=== PATIENT | female | born 1995 | race Caucasian/White ===

== ENCOUNTER 2021-05-07 08:55 | Inpatient (IN) | payer OTHER, SELFPAY ==
[2021-05-07] VITALS (59 sets, daily range): BP systolic 115–160; BP diastolic 56–84; PULSE 80–111; TEMP 27.6–37; O2SAT 97–100; BMI 34.9
[2021-05-07] MEDS: Lactated Ringers 1,000 ML 50 ML IV ×2 (09:45→18:35)
[2021-05-07 10:36] LABS: Absolute Lymphocyte Count 2.62 X10^3/uL (0.83-4.51); Absolute Neutrophil Count 6.2 X10^3/uL (2.0-7.7); Basophil# 0.04 X10^3/uL; Basophil% 0.4 % (0-1); Eosinophil# 0.08 X10^3/uL; Eosinophils% 0.8 % (0-5); Hematocrit 33.8 % (37-47); Hemoglobin 10.7 g/dL (12.0-15.0); Lymphocyte # 2.62 X10^3/ul (0.83-4.51); Lymphocyte % 27.2 % (19-41); Mean Corp Hgb Conc 31.7 g/dL (32-36); Mean Corpuscular Hgb 25.6 pg (27.0-32.0); Mean Corpuscular Volume 80.9 fL (81-99); Mean Platelet Vol. 10.9 fl (6.2-12.0); Monocyte# 0.68 X10^3/uL; Monocyte% 7.1 % (0-10); NRBC Flagged by Analyzer 0 % (0-5); Neutrophil # 6.15 X10^3/uL (2.7-7.7); Neutrophil % 63.9 % (47-70); Platelet Count 294 K/mm3 (150-450); RBC Distribution Width CV 14.6 % (11.6-14.6); RBC Distribution Width SD 42.5 fl (35.1-43.9); Red Blood Count 4.18 M/mm3 (4.2-5.4); White Blood Count 9.6 K/mm3 (4.4-11.0)
[2021-05-07] MEDS: CLARIFY ORDER NOTE (10:46)
[2021-05-07] MEDS: Oxytocin 30 units/NS 500 ml 30 UNITS/500 ML IV.SOLN IV (13:37)
[2021-05-07] MEDS: Mag Hydrox/Al Hydrox/Simeth 30 ML UDC PO ×2 (13:49→19:12)
[2021-05-07] MEDS: Lactated Ringers 500 ML 999 ML IV ×3 (14:16→22:42)
[2021-05-07] MEDS: fentaNYL-bupivacaine (epidural) 100 ML BAG EPIDURAL ×3 (15:53→23:37)
[2021-05-07] MEDS: Ondansetron 4 MG/2 ML Vial IV ×2 (16:28→20:42)
[2021-05-07] MEDS: Amnioinfusion- 0.9% NS 1,000 ML IV.SOLN. 1000 ML INTRA-UTER (19:29)
[2021-05-07] MEDS: 0.9% Saline Lock 10 ML Syringe IV (20:42)
[2021-05-08] VITALS (20 sets, daily range): BP systolic 110–133; BP diastolic 44–85; PULSE 85–116; RESP 11–20; TEMP 36.1–37.2; O2SAT 94–100
[2021-05-08] MEDS: Mag Hydrox/Al Hydrox/Simeth 30 ML UDC PO (00:19)
--- NOTE | 2021-05-08 01:57 | PN.OBGYN_ITS ---
Subjective Subjective Called to labor and delivery with FHT down to the 80's without recovery for 4 minutes. Taken to OR and notified of heart rate status and to come to labor and delivery. All call notified. Upon arrival, patient in OR in hands and knees position and FHR recovered to 160s with minimal variability. Pitocin off. Objective Data Objective Data Vital Signs: Vital Signs Temp Pulse BP Pulse Ox 98.8 F 98 120/85 H 99 05/08/21 00:04 05/08/21 00:19 05/08/21 00:04 05/08/21 00:19 Weight: 210 lb 1.608 oz Body Mass Index (BMI) 34.9 Intake & Output: Intake and Output for Last 24 Hours 05/06/21 05/07/21 05/08/21 23:59 23:59 23:59 Intake Total 2836.93 / 2836.93 Output Total 800 / 800 Balance 2036.93 / 2036.93 Lab / Micro Data Result Diagrams: 05/07/21 09:45 Labs: Laboratory Results - last 24 hr 05/07/21 09:45: WBC 9.6, RBC 4.18 L, Hgb 10.7 L, Hct 33.8 L, MCV 80.9 L, MCH 25.6 L, MCHC 31.7 L, RDW Std Deviation 42.5, RDW Coeff of Olga 14.6, Plt Count 294, MPV 10.9, Immature Gran % (Auto) 0.600, Neut % (Auto) 63.9, Lymph % (Auto) 27.2, Liberty % (Auto) 7.1, Eos % (Auto) 0.8, Baso % (Auto) 0.4, Absolute Neuts (auto) 6.2, Absolute Lymphs (auto) 2.62, Nucleated RBC % 0 05/07/21 09:45: Blood Type A POSITIVE, Antibody Screen NEGATIVE Micro: Microbiology 05/07/21 09:35 Mucosa - Nose SARS-CoV-2 Antigen (Rapid) - Final Physical Exam Narrative complete dilation, +1 station NST FHR Rate Baby A Baseline: 160 Variability:: Minimal Accelerations:: None Decelerations:: Variable FHR Category:: Category II Uterine Activity:: Every 4-6 minutes, strong Assessment & Plan (1) Term : (2) PROM (premature rupture of membranes): (3) Obesity affecting : PLAN: 1)Pushed with patient in OR for almost an hour, FHR variable with return to baseline and tolerating pushing efforts. at bedside. Ok to continue with labor at this time and pushing efforts second stage. 2) Resume pitocin due to contractions spacing 3) Restart epidural for pain management
--- NOTE | 2021-05-08 01:57 | PCM.HP.OB ---
HPI - General General Date of Admission: 05/07/21 HPI Narrative KATHE ENRIQUEZ, is a 26 F who presents at 39w3d with PROM at 0715, irregular contractions and cervix half a centimeter and no active labor. OB history positive for obesity. Maternal Data Information DAISY Calculator Estimated Delivery Date Method Current WG Current Estimate 05/11/21 Manual 39w 4d 39w3d upon admission PFSH PFSH Home Medications famotidine 40 mg PO QHS 05/07/21 [History Last Taken 05/02/21 22:00 1 tab] prenat.vits,gucci,see-[id number] [ Vitamin] 1 tab PO DAILY 05/07/21 [History Last Taken 05/06/21 08:00 1 tab] Allergy/AdvReac Type Severity Reaction Status Date / Time No Known Allergies Allergy Verified 05/07/21 10:38 Family History (Updated 05/07/21 @ 11:32 by January Harris) Grandfather Heart disease Mother Hypertension Grandmother Hypertension Grandmother Breast cancer Social History Smoking Status: Never smoker History Elective abortions Hx Para 0 Spontaneous abortions Hx # Term Pregnancies Ectopic pregnancies Hx # Pregnancies Multiple births # of living children NST FHR Rate Baby A Baseline: 130 Variability:: Moderate Accelerations:: 15 x 15 Decelerations:: None FHR Category:: Category I and Category II Uterine Activity:: Irregular ROS Constitutional Constitutional: Reports systems reviewed and no addt'l complaints, except as documented; Denies headache(s) Eyes Eyes: Denies acute decrease in peripheral vision, blurry vision or change in vision ENT HEENT: Reports systems reviewed and no addt'l complaints, except as documented Cardiovascular Cardiovascular: Denies chest pain or dizziness Respiratory/Chest Respiratory/Chest: Denies cough, dyspnea, dyspnea on exertion, shortness of breath at rest or shortness of breath with exertion Gastrointestinal Gastrointestinal: Denies abdominal pain, diarrhea, nausea or vomiting Genitourinary Genitourinary: Denies abdominal discomfort or movement Musculoskeletal Musculoskeletal: Denies limited range of motion Integumentary Integumentary: Reports systems reviewed and no addt'l complaints, except as documented Neurologic Neurologic: Reports systems reviewed and no addt'l complaints, except as documented Psychiatric Psychiatric: Reports systems reviewed and no addt'l complaints, except as documented Endocrine Endocrinology: Reports systems reviewed and no addt'l complaints, except as documented Hematologic/Lymphatic Hematologic/Lymphatic: Reports systems reviewed and no addt'l complaints, except as documented Allergic/Immunologic Allergic/Immunologic: Reports systems reviewed and no addt'l complaints, except as documented Vital Signs Vital Signs Vital Signs: 05/07/21 09:34 05/07/21 10:49 05/07/21 11:09 Temperature 98.1 F Temperature Source Pulse Rate 99 85 Blood Pressure 133/70 H 123/59 H BP Systolic 133 123 BP Diastolic 70 59 Pulse Ox 05/07/21 13:33 05/07/21 13:34 05/07/21 14:29 Temperature 97.8 F Temperature Source Temporal Pulse Rate 100 99 85 Blood Pressure 135/66 H 126/84 H BP Systolic 135 126 BP Diastolic 66 84 Pulse Ox 97 05/07/21 15:02 05/07/21 15:07 05/07/21 15:12 Temperature Temperature Source Pulse Rate 88 94 93 Blood Pressure BP Systolic BP Diastolic Pulse Ox 97 98 99 05/07/21 15:17 05/07/21 15:19 05/07/21 15:22 Temperature Temperature Source Pulse Rate 108 H 106 H 106 H Blood Pressure 115/61 BP Systolic 115 BP Diastolic 61 Pulse Ox 99 98 05/07/21 15:25 05/07/21 15:27 05/07/21 15:30 Temperature Temperature Source Pulse Rate 93 98 86 Blood Pressure 122/67 H 128/59 H BP Systolic 122 128 BP Diastolic 67 59 Pulse Ox 99 05/07/21 15:32 05/07/21 15:36 05/07/21 15:37 Temperature Temperature Source Pulse Rate 80 102 H 95 Blood Pressure 134/66 H BP Systolic 134 BP Diastolic 66 Pulse Ox 100 99 05/07/21 15:41 05/07/21 15:42 05/07/21 15:46 Temperature Temperature Source Pulse Rate 107 H 107 H 93 Blood Pressure 140/84 H 118/60 BP Systolic 140 118 BP Diastolic 84 60 Pulse Ox 98 05/07/21 15:47 05/07/21 15:51 05/07/21 15:52 Temperature Temperature Source Pulse Rate 82 82 89 Blood Pressure 122/56 H BP Systolic 122 BP Diastolic 56 Pulse Ox 99 99 05/07/21 15:57 05/07/21 16:01 05/07/21 16:02 Temperature Temperature Source Pulse Rate 91 88 89 Blood Pressure 131/58 H 120/68 BP Systolic 131 120 BP Diastolic 58 68 Pulse Ox 99 99 05/07/21 16:07 05/07/21 16:12 05/07/21 16:16 Temperature Temperature Source Pulse Rate 109 H 93 96 Blood Pressure 160/70 H 124/58 H BP Systolic 160 124 BP Diastolic 70 58 Pulse Ox 100 99 05/07/21 16:17 05/07/21 16:20 05/07/21 17:00 Temperature 81.7 F L Temperature Source Pulse Rate 102 H 88 Blood Pressure 118/59 L BP Systolic 118 BP Diastolic 59 Pulse Ox 99 05/07/21 17:35 05/07/21 17:36 05/07/21 17:37 Temperature 97.9 F Temperature Source Pulse Rate 110 H Blood Pressure 119/58 L BP Systolic 119 BP Diastolic 58 Pulse Ox 100 05/07/21 18:29 05/07/21 18:30 05/07/21 18:52 Temperature 97.9 F 98.4 F Temperature Source Pulse Rate 111 H Blood Pressure 134/80 H BP Systolic 134 BP Diastolic 80 Pulse Ox 99 05/07/21 19:20 05/07/21 19:22 05/07/21 19:34 Temperature 98.6 F Temperature Source Pulse Rate 95 96 Blood Pressure 143/72 H BP Systolic 143 BP Diastolic 72 Pulse Ox 99 05/07/21 20:06 05/07/21 20:11 05/07/21 20:26 Temperature Temperature Source Temporal Pulse Rate 101 H 109 H Blood Pressure BP Systolic BP Diastolic Pulse Ox 99 100 05/07/21 20:27 05/07/21 20:28 05/07/21 21:09 Temperature 97.7 F L Temperature Source Pulse Rate 101 H 94 Blood Pressure 129/63 H BP Systolic 129 BP Diastolic 63 Pulse Ox 99 05/07/21 21:12 05/07/21 21:13 05/07/21 21:53 Temperature 98.2 F Temperature Source Pulse Rate 108 H 102 H Blood Pressure 125/78 H BP Systolic 125 BP Diastolic 78 Pulse Ox 99 05/07/21 21:58 05/07/21 22:01 05/07/21 22:02 Temperature 98.1 F Temperature Source Pulse Rate 101 H 90 Blood Pressure 119/70 BP Systolic 119 BP Diastolic 70 Pulse Ox 98 05/07/21 22:50 05/07/21 22:53 05/07/21 22:55 Temperature Temperature Source Pulse Rate 104 H 104 H 90 Blood Pressure 118/76 BP Systolic 118 BP Diastolic 76 Pulse Ox 100 100 05/07/21 23:00 05/07/21 23:05 05/07/21 23:10 Temperature Temperature Source Pulse Rate 91 84 97 Blood Pressure BP Systolic BP Diastolic Pulse Ox 99 99 100 05/08/21 00:04 05/08/21 00:19 Temperature 98.8 F Temperature Source Temporal Pulse Rate 95 98 Blood Pressure 120/85 H BP Systolic 120 BP Diastolic 85 Pulse Ox 100 99 Weight Weight: 210 lb 1.608 oz Body Mass Index (BMI) 34.9 Physical Exam Const alert and oriented x3 General Appearance: cooperative Orientation / Consciousness: awake, oriented to person, oriented to place and oriented to time Exam Limitations: no limitations HEENT normocephalic Head and Scalp: normal to inspection, normocephalic and atraumatic Face and Sinus: normal facial exam Eyes General Eye: normal appearance of both eyes Neck full ROM Chest Chest: symmetrical chest wall rise Resp normal respiratory effort and normal air movement Auscultation: clear to auscultation bilaterally Cardio regular rate, regular rhythm, S1 normal heart sound, S2 normal heart sound, no murmurs, no rub, no gallops and no clicks GI normal to inspection, nondistended, normoactive bowel sounds and non-tender appearance of the vagina normal Bladder / Kidney Exam: no CVA tenderness Back/Spine normal ROM Extremity normal to inspection and full ROM Skin no rashes or lesions noted Neuro oriented x3, CN's II-XII intact bilaterally and moves all extremities Sensorium / Orientation: awake, alert and oriented to person Motor Exam: clonus absent Deep Tendon Reflexes: Rt Patellar (L4): 2+ and Lt Patellar (L4): 2+ Labs Labs Labs: Blood Type A POSITIVE Antibody Screen NEGATIVE Hct 33.8 % (37-47) L Hgb 10.7 g/dL (12.0-15.0) L GBS negative COVID negative 1 hr GCT normal RPR negative Rubella Immune HBsAG negative HIV negative HepC negative A positive GC/CT negative Assessment & Plan (1) Obesity affecting : (2) PROM (premature rupture of membranes): (3) Term : PLAN: 1) Admit to labor and delivery 2) Routine labs 3) Continuous EFM 4) Reviewed expectant vs. active management with Pitocin risks vs. benefits. Patient would like to start Pitocin. 5) Planning epidural for pain management 6) Declines LARC 7) collaborative physician and notified of patient status Procedure Criteria Type of Procedure Procedure Type: Elective Elective Risks - COVID COVID Risk Discussion: The surgeon/proceduralist and patient have discussed in detail the risk of exposure to and/or potential harm posed by the COVID-19 virus with having a surgery/procedure at this time versus the risk of delaying the surgery/procedure. It is not possible to know either the risk of delaying the surgery or procedure or chance of getting an infection with perfect accuracy, but a joint decision was made between the patient and the surgeon/proceduralist to proceed at this time with the scheduled surgery/procedure as indicated on the consent form.
[2021-05-08] MEDS: Lactated Ringers 1,000 ML 200 ML IV (02:15)
[2021-05-08] MEDS: Sodium Citrate/Citric Acid 30 ML UDC PO (02:36)
--- NOTE | 2021-05-08 02:37 | EX.PCM.OBRPT ---
Maternal Data Information DAISY Calculator Estimated Delivery Date Method Current WG Current Estimate 05/11/21 Manual 39w 4d 39w3d upon admission Details Operative Information Date of Procedure: 05/08/21 Pre-Operative Diagnosis: Inability of fetus to tolerate labor Post-Operative Diagnosis: Same Indications for : Nonreassuring Status Indications Narrative: The patient was taken to the operating room where epidural anesthesia was dosed & found to be adequate. She was prepped and draped in the dorsal supine position with a leftward tilt. A Pfannenstiel skin incision was made approximately 2 cm above the symphysis pubis and carried through to the underlying fascia with the scalpel. The fascia was incised incised in the midline and extended laterally with the Ann scissors. The rectus muscles were in the midline and the peritoneum was entered carefully and bluntly. The peritoneal incision was stretched and the bladder blade was inserted. Vesicouterine peritoneum was tented up, incised & then bladder flap created gently. The uterine incision was made in a low transverse fashion with the scalpel and extended superiorly and inferiorly with blunt dissection. The 's head was brought to the incision in the flexed position (with the help of RN lifting up the head vaginally) and delivered without difficulty. Tight double nuchal cord was clamped & cut. Then the head was gently guided to allow delivery of the anterior and posterior shoulders. The body then delivered with fundal pressure in the standard fashion. The infant was handed off to the waiting chief of pediatric urology. The placenta was delivered with fundal massage and gentle traction in the standard fashion. The uterus was exteriorized and cleared of clots and debris. The uterine incision was closed with #1 Vicryl suture in a running locked fashion. Monocryl suture was used in an imbricating fashion. The incision was examined and was found to be hemostatic. The right fallopian tube was noted to have some serosal bleeding. One figure of 8 stitch (superficial & not in the lumen) with 3-0 vicryl provided excellent hemostasis. The uterus was returned to the abdominal cavity. After irrigating Bartolo was placed over the right fallopian tube & uterine incision as some areas were denuded (but hemostatic). The peritoneum was closed with vicryl suture in running fashion The rectus muscle was examined and any bleeding was Bovie cauterized. The fascia was closed with PDS suture in a running standard fashion. The subcutaneous tissue was examining and any bleeding was Bovie cauterized. The subcutaneous tissue was reapproximated with interrupted sutures. The skin was closed in a subcuticular fashion by the [employer] while I was present in the labor & delivery unit. The remainder of the procedure was performed by me with assistance. All sponge, lap, and needle counts were correct. The patient was taken to her room for recovery in a stable condition. Classification: MARI Procedure Type: low transverse screwhead polisher #1: Philippe Eldridge Type of Anesthesia: Epidural Antibiotic Given: Ancef 2 grams IV x1 and Zithromax 500 mg/5 mL X1 Drain: Cash to straight drain Estimated Blood Loss: 850ml Fluids Replaced: 1500ml Procedure Start Time: 02:59 Procedure Stop Time: 04:02 Findings Description of Procedure: Normal maternal uterus and adnexa (other than small bleeding area on right fallopian tube) Presentation: Positive for Vertex Amniotic Membrane Rupture Type: Artificial Amniotic Fluid Description: Clear Placental Delivery Description: Expressed Placenta Disposition: [facility] Cord Vessel Description: 3 Vessels Cord Entanglement: Around neck x 2, tight Nuchal Cord Compression: With compression Infant A Gender: Male (Zeferino; weight = 3235g) (1 minute): 7 (5 minute): 9 Delayed Cord Clamping: No
[2021-05-08] MEDS: Cefazolin 2 GM in 0.9% Normal Saline 100 ML IV (02:44)
[2021-05-08] MEDS: Oxytocin 30 units/NS 500 ml 30 UNITS/500 ML IV.SOLN 167 UNITS IV (04:15)
[2021-05-08] MEDS: Ketorolac 30 MG/ML Syringe IV ×2 (05:15→11:05)
[2021-05-08] MEDS: 0.9% Saline Lock 10 ML Syringe IV ×3 (05:16→17:11)
[2021-05-08] MEDS: Acetaminophen 500 MG Tablet 1000 MG PO ×4 (05:17→23:51)
[2021-05-08] MEDS: Lactated Ringers 1,000 ML 100 ML IV (07:30)
[2021-05-08] MEDS: Senna/Docusate Sodium 1 Tablet PO (11:06)
[2021-05-08] MEDS: Ibuprofen 600 MG Tablet PO ×2 (18:21→23:51)
[2021-05-09] VITALS: BP 126/75; PULSE 98; RESP 18; TEMP 36.5; O2SAT 97
[2021-05-09] MEDS: Ibuprofen 600 MG Tablet PO ×4 (05:21→23:23)
[2021-05-09] MEDS: Acetaminophen 500 MG Tablet 1000 MG PO ×4 (05:22→23:24)
[2021-05-09 05:24] VITALS: BP 120/67; PULSE 87; RESP 16; TEMP 36.2; O2SAT 96
[2021-05-09 05:39] LABS: Hematocrit 24.6 % (37-47); Hemoglobin 7.8 g/dL (12.0-15.0); Mean Corp Hgb Conc 31.7 g/dL (32-36); Mean Corpuscular Hgb 26.2 pg (27.0-32.0); Mean Corpuscular Volume 82.6 fL (81-99); Mean Platelet Vol. 10.2 fl (6.2-12.0); Platelet Count 190 K/mm3 (150-450); RBC Distribution Width CV 15.1 % (11.6-14.6); Red Blood Count 2.98 M/mm3 (4.2-5.4); White Blood Count 15.3 K/mm3 (4.4-11.0)
--- NOTE | 2021-05-09 06:58 | PCM.PN.OB ---
Subjective Subjective Patient seen at bedside. She is up ambulating in room during visit. Denies any dizziness, CP, or SOB. Voiding without difficulty. Passing flatus. with support. Pain controlled. Objective Data Objective Data Vital Signs: Vital Signs Temp Pulse Resp BP Pulse Ox 97.1 F L 87 16 120/67 96 05/09/21 05:24 05/09/21 05:24 05/09/21 05:24 05/09/21 05:24 05/09/21 05:24 Oxygen Delivery Method Room Air Weight: 210 lb 1.608 oz Body Mass Index (BMI) 34.9 Intake & Output: Intake and Output for Last 24 Hours 05/07/21 05/08/21 05/09/21 23:59 23:59 23:59 Intake Total 2836.93 / 2836.93 2665.83 / 2665.83 Output Total 800 / 1200 3950 / 3950 Balance 2036.93 / 1636.93 -1284.17 / -1284.17 Lab / Micro Data Result Diagrams: 05/09/21 05:32 Labs: Laboratory Results - last 24 hr 05/09/21 05:32: WBC 15.3 H, RBC 2.98 L, Hgb 7.8 L, Hct 24.6 L, MCV 82.6, MCH 26.2 L, MCHC 31.7 L, RDW Std Deviation 45.0 H, RDW Coeff of Olga 15.1 H, Plt Count 190, MPV 10.2 Micro: Microbiology 05/07/21 09:35 Mucosa - Nose SARS-CoV-2 Antigen (Rapid) - Final ROS Eyes Eyes: Denies blurry vision, change in vision or spots in vision ENT HEENT: Denies dizziness or headache(s) Cardiovascular Cardiovascular: Denies abdominal pain, chest pain or dyspnea Respiratory/Chest Respiratory/Chest: Denies cough, dyspnea, shortness of breath at rest or shortness of breath with exertion Gastrointestinal Gastrointestinal: Denies abdominal pain, diarrhea or vomiting Genitourinary Genitourinary: Denies change in urinary stream, difficulty urinating or dysuria Musculoskeletal Musculoskeletal: Reports none Integumentary Integumentary: Denies rash Neurologic Neurologic: Denies dizziness, headache(s), memory loss or weakness Physical Exam Narrative Dressing is dry and intact Const alert and no apparent distress General Appearance: cooperative and comfortable Exam Limitations: no limitations HEENT normocephalic Eyes General Eye: normal appearance of both eyes Neck full ROM General: normal visual inspection Chest Chest: symmetrical chest wall rise Resp normal respiratory effort and normal air movement Effort and Inspection: symmetric chest movement Auscultation: clear to auscultation bilaterally Cardio regular rate and regular rhythm GI normal to inspection, nondistended, normoactive bowel sounds Back/Spine normal ROM Extremity full ROM and no calf tenderness General Extremity: normal exam except as noted Skin no rashes or lesions noted Neuro CN's II-XII intact bilaterally Psych mental status grossly normal Assessment & Plan (1) Status post primary low transverse section: (2) Acute blood loss anemia: PLAN: POD #1 Primary C/S HGB 10.7 and now 7.8- patient is asymptomatic Start oral iron supplementation Repeat CBC tomorrow support Anticipate discharge home tomorrow
[2021-05-09 08:58] VITALS: BP 115/76; PULSE 98; RESP 16; TEMP 36.2; O2SAT 100
[2021-05-09] MEDS: Senna/Docusate Sodium 1 Tablet PO (10:01)
[2021-05-09] MEDS: Ferrous Sulfate 325 MG Tablet PO ×2 (12:57→20:02)
[2021-05-09 14:48] VITALS: BP 111/78; PULSE 92; RESP 16; TEMP 36.4; O2SAT 98
[2021-05-09 21:37] VITALS: BP 121/70; PULSE 84; RESP 16; TEMP 36.4; O2SAT 95
[2021-05-10 02:51] VITALS: BP 132/82; PULSE 80; RESP 18
[2021-05-10] MEDS: Ibuprofen 600 MG Tablet PO (04:50)
[2021-05-10] MEDS: Acetaminophen 500 MG Tablet 1000 MG PO ×2 (04:50→10:52)
[2021-05-10 05:09] LABS: Hematocrit 26.8 % (37-47); Hemoglobin 8.2 g/dL (12.0-15.0); Mean Corp Hgb Conc 30.6 g/dL (32-36); Mean Corpuscular Hgb 25.6 pg (27.0-32.0); Mean Corpuscular Volume 83.8 fL (81-99); Mean Platelet Vol. 9.9 fl (6.2-12.0); Platelet Count 231 K/mm3 (150-450); RBC Distribution Width CV 15.3 % (11.6-14.6); RBC Distribution Width SD 45.6 fl (35.1-43.9); White Blood Count 13.4 K/mm3 (4.4-11.0)
[2021-05-10 09:00] VITALS: BP 131/82; PULSE 88; RESP 16; TEMP 36.6; O2SAT 98
--- NOTE | 2021-05-10 09:18 | PCM.DC ---
Discharge Instructions Follow Up Care Test Results: Test results from this visit will be discussed in further detail at your follow-up appointment, if applicable. Discharge Plan Admission Admit Date/Time: 05/07/21 08:55 Attending Provider: Ronny Valladares Primary Care Provider: Augie Thompson Instructions Patient Instructions: After Delivery Concerns, After a , C Section Dc Discharge Orders/Prescriptions Prescriptions: No Action famotidine 40 mg tablet 40 mg PO QHS RF: 0 Vitamin Tablet 1 tab PO DAILY RF: 0 Referrals / Follow Up: Augie Thompson MD [Primary Care Provider] - Disposition Discharge Orders: Discharge Patient (Routine); Ordered 05/10/21 Ordered By: Dr. Josselyn Perea
--- NOTE | 2021-05-10 09:19 | PCM.PN.OB ---
Subjective Subjective Pt doing well. Ambulating and voiding without difficulty. Tolerating regular diet without nausea vomiting. Lochia normal. Pain controlled. Desires to go home. No CP or SOB. Objective Data Objective Data Vital Signs: Vital Signs Temp Pulse Resp BP Pulse Ox 97.5 F L 80 18 132/82 H 95 05/09/21 21:37 05/10/21 02:51 05/10/21 02:51 05/10/21 02:51 05/09/21 21:37 Oxygen Delivery Method Room Air Weight: 210 lb 1.608 oz Body Mass Index (BMI) 34.9 Intake & Output: Intake and Output for Last 24 Hours 05/08/21 05/09/21 05/10/21 23:59 23:59 23:59 Intake Total 2665.83 / 2665.83 Output Total 3950 / 3950 Balance -1284.17 / -1284.17 Lab / Micro Data Result Diagrams: 05/10/21 04:55 Labs: Laboratory Results - last 24 hr 05/10/21 04:55: WBC 13.4 H, RBC 3.20 L, Hgb 8.2 L, Hct 26.8 L, MCV 83.8, MCH 25.6 L, MCHC 30.6 L, RDW Std Deviation 45.6 H, RDW Coeff of Olga 15.3 H, Plt Count 231, MPV 9.9 Micro: Microbiology 05/07/21 09:35 Mucosa - Nose SARS-CoV-2 Antigen (Rapid) - Final Assessment & Plan (1) Acute blood loss anemia: PLAN: Pt desires discharge home. Doing well. Iron supplement at home. To follow up in 1 week in office. (2) Status post primary low transverse section:
[2021-05-10] MEDS: Senna/Docusate Sodium 1 Tablet PO (10:34)
== END 2021-05-10 10:50 | disposition home or self-care (01) | DRG 788 ==
PROVIDERS: Advanced Practice Midwife; Admitting Provider Obstetrics & Gynecology; PCP Family Medicine; Visit Provider Obstetrics & Gynecology
DX: O42.02 Full-term premature rupture of membranes, onset of labor within 24 hours of rupture (principal); O99.214 Obesity complicating childbirth; E66.9 Obesity, unspecified; O69.1XX0 Labor and delivery complicated by cord around neck, with compression, not applicable or unspecified; O76 Abnormality in fetal heart rate and rhythm complicating labor and delivery; Z3A.39 39 weeks gestation of pregnancy; Z37.0 Single live birth
CPT/HCPCS: 59025; 59050; 85025; 85027; 86850; 86900; 86901; 87426; 99218; J7030; J7120; A4216; G0378; J2405

== ENCOUNTER 2023-01-09 15:25 | Emergency (ER) | payer OTHER, SELFPAY ==
[2023-01-09 15:25] VITALS: BP 120/68; PULSE 76; RESP 16; TEMP 36.6; O2SAT 100; BMI 33.6
--- NOTE | 2023-01-09 15:40 | US_ITS ---
STUDY: FIRST TRIMESTER OBSTETRICAL ULTRASOUND REASON FOR EXAM: Female, 27 years old. threatened misscarriage TECHNIQUE: Transvaginal US was obtained to better visualized the ovaries. TECHNICAL QUALITY: Adequate. PRIOR ULTRASOUND: None. FINDINGS: There is visualization of a single gestational sac in a normal intrauterine position. The mean sac diameter (MSD) measures 36 mm, indicating an estimated gestational age (EGA) of 8 weeks, 6 days. The gestational sac shape is within normal limits. There is a visualized yolk sac. The yolk sac measures 3.4 mm. The placenta is non-visualized. Due to early gestation, the placenta is not seen. There is visualization of a live embryo. The crown-rump length (CRL) measures 31 mm, indicating an estimated gestational age (EGA) of 9 weeks, 5 days. There is demonstrated cardiac activity with a heart rate of 177 bpm. The estimated gestation age (EGA) by LMP is 9 weeks, 6 days. The estimated date of delivery (DAISY) by LMP is 10.28.23. The estimated gestation age (EGA) by US is 9 weeks, 2 days. The estimated date of delivery (DAISY) by US is 11.1.23. The uterus measures 10.6x8 cm. There is no demonstrated uterine fibroid. The cervix is closed.Small subchorionic hemorrhage. The right ovary measures 3.2 cm. There is 20mmright ovarian cyst. There is no visualized right adnexal mass or complex lesion. The left ovary measures 2.9 cm. There is no left ovarian cyst. There is no visualized left adnexal mass or complex lesion. There is minimal fluid in the cul de sac. US/Transvaginal w/Preg US IMPRESSION: There is a single live intrauterine with a heart rate of 177 bpm. There is minimal fluid in the cul de sac. Small subchorionic hemorrhage. Electronically Signed: Lee Greco MD at 17:12 EDT ,
--- NOTE | 2023-01-09 15:41 | EDS_ITS ---
HPI HPI - Female History of Present Illness Chief Complaint: Vag Bld, Preg Informant: patient Bleeding Issue: Positive for Vaginal bleeding Onset: Today Current Severity: Mild Associated Symptoms P: 1 Ab: 1 Narrative Narrative: Patient presents secondary to vaginal bleeding. She is currently 10 weeks with her third . Her first she carried to term and had a . Her second she miscarried at 7 weeks. Her blood type is a positive, verified on our records. She reports blood in the toilet bowl today but not passing any clots or tissue. She did use a panty liner but has had only mild bleeding onto that. No significant abdominal pain. Patient follows with Dr. Meneses in [place] for [facility] [employer] care. PFSH PFSH Medical History no medical history no medical history Home Medications famotidine 40 mg tablet 40 mg PO QHS indigestion 05/07/21 [History Last Taken 05/02/21 22:00 1 tab] prenat.vits,gucci,esp-xpqv-hoyuc 1 tab PO DAILY vitamin 05/07/21 [History Last Taken 05/06/21 08:00 1 tab] Allergy/AdvReac Type Severity Reaction Status Date / Time No Known Allergies Allergy Verified 01/09/23 15:29 Family History Grandfather Heart disease Mother Hypertension Grandmother Hypertension Grandmother Breast cancer Social History Smoking Status: Never smoker ROS ROS ED Constitutional Constitutional ED: Denies chills or fever(s) Eyes Eyes: Denies change in vision or discharge from eye(s) ENT ENT ED: Denies discharge from eye(s), rhinorrhea or sore throat Cardiovascular Cardiovascular: Denies chest pain or palpitations Respiratory/Chest Respiratory/Chest: Denies cough or dyspnea Gastrointestinal Gastrointestinal: Denies abdominal pain, nausea or vomiting Genitourinary Genitourinary ED: Denies dysuria Musculoskeletal Musculoskeletal: Denies back pain or extremity pain Integumentary Denies Abrasions or rash Neurologic Neurologic: Denies headache(s) or weakness Psychiatric Psychiatric: Denies anxiety or depression Allergic/Immunologic Allergic/Immunologic ED: Denies lip swelling or urticaria EXAM Physical Exam Const Vital Signs: 01/09/23 15:25 Temperature 97.8 F Temperature Source Temporal Pulse Rate 76 Respiratory Rate 16 Blood Pressure 120/68 Blood Pressure Mean 85 Pulse Ox 100 Oxygen Delivery Method Room Air Positive well nourished and well developed General Appearance ED: well developed HEENT Reports normocephalic and head/scalp atraumatic Eyes PERRL and EOMs intact bilaterally Neck supple Chest Wall inspection of chest normal and palpation of chest normal Resp normal respiratory effort and clear to auscultation bilaterally Cardio regular rate and regular rhythm GI soft to palpation Palpation: soft Back/Spine no CVA tenderness Extremity normal to inspection Neuro oriented x3 and no sensory deficits noted Sensorium / Orientation: alert Motor Exam: strength 5/5 throughout Psych mental status grossly normal Skin no rashes or lesions noted MDM MDM MDM Narrative Medical decision making narrative: I was able to verify patient's blood type in the computer as being a positive. Quant is obtained today and returns at greater than 1000. Urinalysis reveals no evidence of infection. Pelvic ultrasound is performed. There is evidence of a small subchorionic hemorrhage. heart tones are measured at 177. No other acute abnormalities noted. Test results are discussed with the patient. I did advise her that at this time fetus looks okay, however that is always noted to change. She understands that this could lead to miscarriage. She was advised to call her [employer] on Thursday for follow-up. If she has any concerns throughout the week and she can return and we are happy to recheck her. She voices understanding and agreement. Lab Data Labs: Laboratory Results - last 24 hr 01/09/23 01/09/23 15:40 16:03 HCG, Quant > 1000 H Urine Color Yellow Urine Clarity Clear Urine pH 7.0 Ur Specific Violet 1.010 Urine Protein 15 H Urine Glucose (UA) Normal Urine Ketones Negative Urine Occult Blood 250 H Urine Nitrite Negative Urine Bilirubin Negative Urine Urobilinogen Normal Ur Leukocyte Esterase 100 H Urine RBC 0-5 SEEN Urine WBC 0-5 SEEN Ur Squamous Epith Cells 0-5 SEEN Urine Bacteria RARE Urine Mucus 0 SEEN Radiography Diagnostic Testing: Clinical Impression(s) from Imaging Studies Obstetrics Ultrasound 01/09/23 15:40 IMPRESSION: There is a single live intrauterine with a heart rate of 177 bpm. There is minimal fluid in the cul de sac. Small subchorionic hemorrhage. Electronically Signed: Lee Greco MD at 17:12 EDT Reading Location ID and State: [facility] / [place] , Service support , Discharge Plan Triage Chief Complaint: Vag Bld, Preg ED Provider: Kelli Bridges Dx/Rx/DC Orders Clinical Impression: Threatened miscarriage Instructions: ED Possible Miscarriage ... Prescriptions: No Action famotidine 40 mg tablet 40 mg PO QHS Label Comments: TAKE 1 TABLET BY MOUTH EVERY DAY Vitamin Tablet 1 tab PO DAILY Primary Care Provider: Augie Thompson Referrals: Derrick Meneses MD [Non-Staff] - 3-5 Days Augie Thompson MD [Primary Care Provider] - Disposition Disposition: Home, Self Care
[2023-01-09 16:15] LABS: Color, Urine Yellow (Yellow); Glucose, Dipstick Normal (Normal); Ketone-Dipstick Negative (Negative); Leukocyte Esterase-Dipstick 100 /ul (Negative); Mucous, Urine 0 SEEN /hpf (<or=2+); Nitrite-Dipstick Negative (Negative); Occult Blood-Urine 250 /ul (Negative); Protein-Dipstick 15 mg/dl (Negative); Urine Bilirubin Dipstick Negative (Negative); Urine Clarity Clear (Clear); Urine Urobilinogen Normal (Normal)
[2023-01-09 16:21] LABS: Bacteria RARE /hpf (None Seen); Red Blood Cells-Urine 0-5 SEEN /hpf (0-5); White Blood Cells 0-5 SEEN /hpf (0-5)
[2023-01-09 16:22] LABS: Squamous Epithelial Cells - UA 0-5 SEEN /hpf (5-10)
[2023-01-09 17:12] LABS: hCG Titer Quant., Serum > 1000 mIU/mL (1-3)
[2023-01-09 17:25] VITALS: RESP 16
== END 2023-01-09 17:29 | disposition home or self-care (01) ==
PROVIDERS: Emergency Provider Emergency Medicine; PCP Family Medicine; Visit Provider Emergency Medicine
DX: O20.0 Threatened abortion (principal); O20.8 Other hemorrhage in early pregnancy; Z3A.10 10 weeks gestation of pregnancy
CPT/HCPCS: 76817; 81001; 84702; 99282